=== PATIENT | female | born 1980 | race Caucasian/White ===

== ENCOUNTER → 2023-11-11 18:51 | Outpatient (REF) | payer OTHER, SELFPAY | LOC: WDC 18:51 | PROVIDERS: ATTENDING PHYSICIAN Obstetrics & Gynecology; FAMILY PHYSICIAN Nurse Practitioner | DX: Z12.31 Encounter for screening mammogram for malignant neoplasm of breast (principal) | CPT/HCPCS: 77063; 77067 ==

== ENCOUNTER → 2025-03-21 17:22 | Outpatient (REF) | payer OTHER, SELFPAY | LOC: RAD 17:22 | PROVIDERS: ATTENDING PHYSICIAN Student in an Organized Health Care Education/Training Program; FAMILY PHYSICIAN Nurse Practitioner | DX: Z86.018 Personal history of other benign neoplasm (principal) | CPT/HCPCS: 76830; 76856 ==

== ENCOUNTER → 2025-03-23 19:10 | Outpatient (REF) | payer OTHER, SELFPAY | LOC: WDC 19:10 | PROVIDERS: ATTENDING PHYSICIAN Student in an Organized Health Care Education/Training Program; FAMILY PHYSICIAN Nurse Practitioner | DX: Z12.31 Encounter for screening mammogram for malignant neoplasm of breast (principal) | CPT/HCPCS: 77063; 77067 ==

== ENCOUNTER → 2025-06-13 14:23 | Outpatient (REF) | payer OTHER, SELFPAY | LOC: RAD 14:23 | PROVIDERS: ATTENDING PHYSICIAN Physician Assistant | DX: L98.9 Disorder of the skin and subcutaneous tissue, unspecified (principal) | CPT/HCPCS: 76882 ==